=== PATIENT | male | born 1980 | race Two or more races ===

== ENCOUNTER 2019-03-18 07:00 | Day surgery (SDC) | payer OTHER, MEDICAID ==
[~2019-03-18] VITALS: Ht 170.2 cm; Wt 95.3 kg
[~2019-03-18 07:00] MED LIST: ASPI325T4 PO; ATOR1TAB PO; CHOL20009 PO; FURO20TA3 PO; ISOS5TAB PO; LORA-622 PO; LOSA25TA38 PO; METO-6 PO; POTA10TA51 PO
[2019-03-18] MEDS ORDERED: ANGIOMAX 250 MG VIAL IV ONE (07:45)
[2019-03-18] MEDS ORDERED: IODIXANOL 320MG/ML 100ML BTL IV ONE (07:46)
[2019-03-18] MEDS ORDERED: LIDOCAINE 2%HCL (LOCAL ANESTH.) INJ 20ML MDV ONE (07:46)
[2019-03-18] MEDS ORDERED: MIDAZOLAM HCL 1MG/1ML-2 ML VIAL ONE (07:46)
[2019-03-18] MEDS ORDERED: fentaNYL CITRATE 100 MCG/2 ML VL ONE (07:46)
[2019-03-18] MEDS ORDERED: SODIUM CHL 0.9% 0 ML ONE (07:46)
[2019-03-18] MEDS ORDERED: VERAPAMIL 2.5MG/ML INJ 2ML VIAL IV ONE (07:47)
[2019-03-18] MEDS ORDERED: HEPARIN SODIUM (PORCINE) 5000 UNITS/ML 1ML VIAL ONE (08:05)
[2019-03-18] MEDS ORDERED: ACETAMINOPHEN 500 MG TAB PO PRN (08:45)
[2019-03-18] MEDS ORDERED: ONDANSETRON HCL 4 MG/2 ML VIAL IV PRN (08:45)
[2019-03-18] MEDS ORDERED: HYDROcodone-ACET 5/325MG TAB PO PRN (08:45)
== END 2019-03-18 10:05 | disposition home or self-care (01) ==
LOC: CATH 07:00
PROVIDERS: ATTEND Internal Medicine
DX: R94.39 Abnormal result of other cardiovascular function study (principal); I47.1 Supraventricular tachycardia; I63.9 Cerebral infarction, unspecified; I50.9 Heart failure, unspecified; Z79.899 Other long term (current) drug therapy; Z79.82 Long term (current) use of aspirin; Z87.891 Personal history of nicotine dependence
CPT/HCPCS: 93005; 93458; C1769; C1894; J1644; J2250; J3010; Q9967; 99152; 99153